=== PATIENT | female | born 1950 | race Caucasian/White ===

== ENCOUNTER 2023-07-05 16:31 | Emergency (ER) | payer MEDICARE, SELFPAY ==
--- NOTE | ~2023-07-05 | XR_ITS ---
EXAMINATION: XR shoulder RT min 2V DATE: 07/05/2023 17:06 INDICATION: Right shoulder injury while vacuuming with limited range of motion TECHNIQUE: AP internally and externally rotated, AP oblique externally rotated and transscapular Y vi ews of the right shoulder were obtained. COMPARISON: None FINDINGS: Normal alignment. No fracture.Mild right glenohumeral and moderate acromioclavicular osteoarthritis. Subtle dystrophic calcific lesion along the distal rotator cuff consistent with calcific tendinitis. Soft tissues are unremarkable. Visualized portions of the lungs are clear. IMPRESSION: 1. 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 No acute osseous abnormal ity. 2. Right rotator cuff calcific tendinitis. Reviewed, dictated and finalized at location A. [employer] IMPRESSION: 1. 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 No acute osseous abnormality. 2. Right rotator cuff calcific tendinitis.
[2023-07-05 16:42] VITALS: BP 108/47; PULSE 100; RESP 20; TEMP 36.8; O2SAT 96
--- NOTE | 2023-07-05 17:12 | ED.EXTPRO ---
HPI - Extremity Problem General Chief complaint: Extremity Problem,Nontraumatic Stated complaint: Range of motion/pain right shoulder Time Seen by Provider: 07/05/23 17:12 Source: patient Mode of arrival: ambulatory Limitations: no limitations History of Present Illness HPI Narrative: 72-year-old female presented for complaint of right shoulder pain and decreased range of motion for 2 days. She states the only overuse could have been after vacuuming. Otherwise denies injury. She does not want to take anything for pain, stating she does not want mask the pain. Pain radiates to the elbow, rates 10/10 at times. Worse with certain movements. Reports some tingling to hands which is unchanged neuropathy. Denies numbness, or weakness of the hand. Pt is right hand dominant. follows with vascular surgeon. Related Data Home Medications Medication Instructions Recorded Confirmed aspirin 07/05/23 atorvastatin 20 mg tablet mg 07/05/23 metformin 500 mg tablet,extended mg PO 07/05/23 release 24 hr Allergies Allergy/AdvReac Type Severity Reaction Status Date / Time amlodipine Allergy Rash Verified 07/05/23 16:46 Review of Systems Review of Systems: CONSTITUTIONAL: Denies body aches, fever, chills EYES: Denies visual changes ENT: Denies rhinorrhea, congestion CARDIOVASCULAR: Denies chest pain, palpitations, or edema. RESPIRATORY: Denies cough or dyspnea. GASTROINTESTINAL: Denies abdominal pain, nausea, vomiting, or diarrhea. SKIN: Denies rash, itching, or wounds. MUSCULOSKELETAL: Reports right shoulder pain Denies back pain, or myalgia. NEUROLOGIC: Denies headache, numbness, tingling, or weakness. PSYCH: Denies depression or anxiety. All systems reviewed & are unremarkable except as noted in HPI and below [facility] Past Medical History Medical History (Updated 07/05/23 @ 17:43 by Minerva Abraham APRN) Diabetes Vascular disease Comments At time of signature, I have reviewed and agree with nursing past medical, surgical, social and family history unless otherwise noted. Please see nursing chart for further information. There is no relevant family history pertinent to the presenting complaint Exam Narrative: GENERAL: Well-appearing CHEST: Speaks in full sentences. No respiratory distress. HEART: Regular rate and rhythm. Normal and equal peripheral pulses. EXTREMITIES: RUE has limited range of motion at shoulder, unable to tolerate any movement from the shoulder due to pain. 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 Full ROM at elbow. No edema or ecchymosis to the RUE. No open wounds, or obvious deformity; alignment normal, pulse palpable and equal bilaterally, skin warm, dry, pink. Capillary refill less than 3 seconds. SKIN: Warm, dry, no rash. NEURO: Alert and oriented x3. PSYCH: Normal mood and affect Course Course Emergency Course: Patient is aware of diagnosis, understands and agrees to treatment plan. Anticipatory guidance given. Patient agrees to follow-up as directed and is aware of reasons to seek care at the emergency department. Portions of this record may have been created with voice recognition software Level of Care: Express Care Visit Vital Signs Vital signs: Vital Signs Temperature 98.3 F 07/05/23 16:42 Pulse Rate 100 07/05/23 16:42 Respiratory Rate 20 07/05/23 16:42 Blood Pressure 108/47 L 07/05/23 16:42 Pulse Oximetry 96 07/05/23 16:42 Oxygen Delivery Room Air 07/05/23 16:42 Temperature 98.3 F 07/05/23 16:42 Pulse Rate 100 07/05/23 16:42 Respiratory Rate 20 07/05/23 16:42 Blood Pressure 108/47 L 07/05/23 16:42 Pulse Oximetry 96 07/05/23 16:42 Oxygen Delivery Room Air 07/05/23 16:42 Reviewed Procedures Orthopedic Splinting/Casting right shoulder: Upper Extremity Immobilizer: sling/shoulder immobilizer MDM - Extremity (Nontraumatic) MDM Narrative Medical
== END 2023-07-05 17:52 | disposition home or self-care (01) ==
PROVIDERS: Emergency Provider Nurse Practitioner Family; PCP Internal Medicine
DX: M25.511 Pain in right shoulder (principal); E11.9 Type 2 diabetes mellitus without complications; I99.9 Unspecified disorder of circulatory system
CPT/HCPCS: 73030; 99213; A4565; G0463